=== PATIENT | female | born 1960 | race African-American/Black ===

== ENCOUNTER 2016-08-17 12:23 | Outpatient (CLI) | payer MEDICARE, OTHER ==
--- NOTE | 2016-08-17 13:03 | Diagnostic Imaging Report ---
Indication: Cough Comparison: None 2 views of the chest obtained. Findings: Cardiomediastinal silhouette and pulmonary vascularity are within normal limits for age. The diaphragmatic contour is smooth and costophrenic angles are sharp. No pleural effusions are identified. 2 old cervical fusion noted in the lower part of the cervical spine. Impression: No acute disease
== END 2016-08-18 13:53 | disposition home or self-care (01) ==
LOC: RAD 12:23
DX: R05 Cough (principal)
CPT/HCPCS: 71020

== ENCOUNTER 2017-04-15 14:34 | Outpatient (CLI) | payer MEDICARE, MEDICAID ==
[~2017-04-15] VITALS: Ht 162.6 cm; Wt 64.0 kg
[2017-04-15 14:00] VITALS: BP 133/78
[2017-04-15] MEDS ORDERED: NORCO 5-325 TA1 EACH ORAL (15:35)
[2017-04-15] MEDS ORDERED: TAMSULOSIN HCL0.4 MG ORAL (15:35)
[2017-04-15] MEDS ORDERED: NAPROXEN25 G1 MC (15:35)
[2017-04-15] MEDS ORDERED: ESTRACE1 MG ORAL (15:35)
[2017-04-15] MEDS ORDERED: AMBIEN10 M1 ORAL (15:35)
[2017-04-15] MEDS ORDERED: GABAPENTIN300 MG ORAL (15:35)
[2017-04-15] MEDS ORDERED: ALPRAZOLAM0.5 MG PO (15:35)
[2017-04-15] MEDS ORDERED: CYCLOBENZAPRINE10 MG ORAL (15:35)
[2017-04-15] MEDS ORDERED: TENORMIN50 MG ORAL (15:35)
--- NOTE | 2017-04-15 15:39 | GI Initial Consult Note ---
History of Present Illness General Date patient seen: Apr 15, 2017 Time patient seen: 15:27 Referring physician: KORIN Reason for Consultation: COLONOSCOPY Present Illness HPI 56 year old pleasant female referred by Dr. Bonilla for evaluation of abdominal pain. The patient last EGD/colonoscopy was performed approximately 4 years ago where she states she has colonic polyps removed and hiatal hernia. She presents today with lower abdominal pain with increase frequency and urge to urinate. In addition she has diarrhea vs constipation, abdominal bloating and GERD. Denies any unintentional weight loss or changes in dietary habits. No signs of abuse or neglect. Patient is not fall risk. Home Meds Reported Medications Naproxen (NAPROXEN) 25 Gm Powder, 25 GM MC, GM 04/15/17 Tamsulosin Hcl (TAMSULOSIN HCL*) 0.4 Mg Cap.er.24h, 0.4 MG ORAL BEDTIME, CAP 04/15/17 Gabapentin* (GABAPENTIN*) 300 Mg Capsule, 300 MG ORAL THREE TIMES A DAY, CAP 0 Refills 04/15/17 Cyclobenzaprine Hcl* (FLEXERIL*) 10 Mg Tablet, 10 MG ORAL THREE TIMES A DAY, TAB 04/15/17 Hydrocodone Bit/Acetaminophen 5-325* (NORCO 5-325*) Unknown Strength Tablet, ORAL Q4H Y, TAB 0 Refills 04/15/17 Zolpidem Tartrate* (AMBIEN*) 10 Mg Tablet, 10 MG ORAL HS Y, TAB 04/15/17 Atenolol* (TENORMIN*) 50 Mg Tablet, 50 MG ORAL DAILY, TAB 04/15/17 Estradiol* (ESTRACE*) 1 Mg Tablet, 1 MG ORAL DAILY, #10 TAB 0 Refills 04/15/17 Alprazolam* (XANAX*) 0.5 Mg Tablet, 0.5 MG PO TID, TAB 04/15/17 Med list reviewed/reconciled: Yes Allergies: Coded Allergies: Doxycycline (Unverified Allergy, Unknown, 04/15/17) Patient History History Provided By: Patient, Medical Record PMH Narrative TB HTN Diverticulitis Cdiff IBS PUD HH Past Surgical History: Ovary removal hysterectomy polypectomy L rotator cuff Social History: Reports: smoking - 20 + years, other - coffee Review of Systems All Other Systems: negative except mentioned in HPI Physical Exam T 98.2 BP 133/78 P 99 96 RA WT 142.1 HT 5'4 Sp02 EP Interpretation: reviewed, normal General Appearance: well appearing, no apparent distress, alert Head: normocephalic EENT: PERRL/EOMI, normal ENT inspection Neck: supple Respiratory: normal breath sounds, no respiratory distress Cardiovascular: normal rate Gastrointestinal: normal inspection, non tender, soft, normal bowel sounds, non -distended Rectal: deferred Genitourinary: no CVA tenderness Musculoskeletal: normal inspection, back normal Neurologic: normal inspection, alert, oriented x3, responsive Psychiatric: normal inspection, judgement/insight normal, memory normal Skin: normal inspection, normal color, no rash, warm/dry, palpation normal, well hydrated Lymphatic: normal inspection, no adenopathy GI: Plan Problems: (1) HTN (hypertension) (2) Colonoscopy planned (3) Diverticulitis (4) Clostridium difficile infection (5) GERD (gastroesophageal reflux disease) (6) IBS (irritable bowel syndrome) (7) Constipation (8) Diarrhea Plan colonoscopy scheduled for 04/23/17. - CLD & (Nulytely/Suprep/Movi-Prep) prep instructions given and acknowledged by patient. - NPO @ MD day prior procedure explained. Rx miralax Discussed with Dr. Rowe. Thank you for this patient referral, we will follow. Mariely Self N.P. Apr 15, 2017 15:39
== END 2017-04-15 15:09 | disposition home or self-care (01) ==
LOC: PAN 14:34
DX: R10.9 Unspecified abdominal pain (principal); I10 Essential (primary) hypertension; K57.92 Diverticulitis of intestine, part unspecified, without perforation or abscess without bleeding; K21.9 Gastro-esophageal reflux disease without esophagitis; K58.9 Irritable bowel syndrome, unspecified; K59.00 Constipation, unspecified; R19.7 Diarrhea, unspecified; B96.89 Other specified bacterial agents as the cause of diseases classified elsewhere; F17.200 Nicotine dependence, unspecified, uncomplicated; Z90.721 Acquired absence of ovaries, unilateral; Z90.710 Acquired absence of both cervix and uterus; Z86.11 Personal history of tuberculosis; Z88.8 Allergy status to other drugs, medicaments and biological substances; Z87.11 Personal history of peptic ulcer disease
CPT/HCPCS: 99202